=== PATIENT | male | born 2000 | race Caucasian/White ===

== ENCOUNTER 2021-12-27 21:15 | Emergency (ER) | payer BC ==
[~2021-12-27] VITALS: Ht 175.3 cm; Wt 100.0 kg
[2021-12-27 21:28] VITALS: BP 147/75; TEMP 98.3
[2021-12-27 23:12] VITALS: PULSE 111
== END 2021-12-27 23:15 | disposition home or self-care (01) ==
LOC: COL.ER 21:15
DX: J45.901 Unspecified asthma with (acute) exacerbation (principal); R00.0 Tachycardia, unspecified
CPT/HCPCS: J8540